=== PATIENT | female | born 1945 | race Asian ===

== ENCOUNTER → 2018-07-14 | Outpatient (CLI) | payer MEDICARE, OTHER ==
--- NOTE | 2018-07-14 09:57 | RAD ---
Indication:ABD BLOATING AND DISCOMFORT TECHNIQUE: Grayscale, color Doppler and spectral waveform is of the limited abdomen obtained. COMPARISON:None FINDINGS:Visualized pancreas is within normal limits. No gallstones, pericholecystic fluid or gallbladder wall thickening. IVC is patent. Main portal vein is patent. Liver measures 13 cm in longest dimension and is normal in size with diffuse increased echogenicity. No apparent focal liver lesion. Right kidney measures 11.3 cm in length without hydronephrosis. CBD measures 3 mm in diameter and is within normal limits. IMPRESSION: 1. No cholelithiasis or sonographic evidence of acute cholecystitis. 2. Mild hepatic steatosis. Electronically signed by: Troy Lindsey DO (07/14/2018 9:54 AM) [id number]
== END | disposition home or self-care (01) ==
LOC: US 08:58
PROVIDERS: ATTEND Internal Medicine Gastroenterology
DX: K76.0 Fatty (change of) liver, not elsewhere classified (principal)
CPT/HCPCS: 76705

== ENCOUNTER → 2018-09-06 | Day surgery (SDC) | payer MEDICARE, OTHER ==
[~2018-09-06] MED LIST: ALBUTEROL SULFATE 2.5 MG/3 ML NEBU. NEB PRN; CALC-157 PO; CHOL100013 PO; IPRATRPIUM/ALBUTEROL 0.5/2.5MG 3 ML NEBU. NEB PRN; IV RINGERS SOLUTION,LACTATED 1,000 ML IV SCH; LORA10TA68 PO; MAGN200T PO; METOPROLOL TARTRATE 5 MG/5 ML VIAL. IV PRN; ONDANSETRON PF 4 MG/2 ML VIAL. IV PRN; PROPOFOL 20 ML IV ONE; SIMV10TA3 PO; UBID30CA9 PO
[2018-09-06 10:13] VITALS: BP 101/51
== END | disposition home or self-care (01) ==
LOC: SURG 07:26
PROVIDERS: ATTEND Internal Medicine Gastroenterology
DX: D12.2 Benign neoplasm of ascending colon (principal); K64.8 Other hemorrhoids; Z79.899 Other long term (current) drug therapy; K21.9 Gastro-esophageal reflux disease without esophagitis; Z98.890 Other specified postprocedural states; Z98.51 Tubal ligation status; Z85.828 Personal history of other malignant neoplasm of skin; Z86.010 Personal history of colon polyps; Z81.1 Family history of alcohol abuse and dependence
CPT/HCPCS: 45385; J2704; J7120; 45380

== ENCOUNTER → 2018-10-11 | Day surgery (SDC) | payer MEDICARE, OTHER ==
[~2018-10-11] MED LIST changes: +ATROPINE 0.5 MG/5 ML DISP.SYRIN. IV PRN; -IPRATRPIUM/ALBUTEROL 0.5/2.5MG 3 ML NEBU. NEB PRN; +LIDOCAINE 2% PF Vial for OR 5 ML VIAL. ONE; -METOPROLOL TARTRATE 5 MG/5 ML VIAL. IV PRN; +NALOXONE 0.4 MG/ML VIAL. IV PRN; +diphenhydrAMINE 50 MG/ML VIAL IV PRN
[2018-10-11 09:30] VITALS: BP 133/76
== END | disposition home or self-care (01) ==
LOC: SURG 07:30
PROVIDERS: ATTEND Internal Medicine Gastroenterology
DX: K21.9 Gastro-esophageal reflux disease without esophagitis (principal); R14.0 Abdominal distension (gaseous); R10.10 Upper abdominal pain, unspecified; Z79.899 Other long term (current) drug therapy; Z98.51 Tubal ligation status; Z98.890 Other specified postprocedural states; Z86.010 Personal history of colon polyps; Z85.828 Personal history of other malignant neoplasm of skin
CPT/HCPCS: 43239; J2704; J7120; J2001

== ENCOUNTER → 2018-12-07 | Outpatient (CLI) | payer MEDICARE, OTHER ==
[2018-10-11 09:30] VITALS: BP 133/76
[~2018-12-07] MED LIST changes: -ALBUTEROL SULFATE 2.5 MG/3 ML NEBU. NEB PRN; -ATROPINE 0.5 MG/5 ML DISP.SYRIN. IV PRN; -IV RINGERS SOLUTION,LACTATED 1,000 ML IV SCH; -LIDOCAINE 2% PF Vial for OR 5 ML VIAL. ONE; -NALOXONE 0.4 MG/ML VIAL. IV PRN; -ONDANSETRON PF 4 MG/2 ML VIAL. IV PRN; -PROPOFOL 20 ML IV ONE; -diphenhydrAMINE 50 MG/ML VIAL IV PRN
--- NOTE | 2018-12-07 15:01 | RAD ---
Gastric Emptying Study 12/07/2018 Indication: Upper abnormal pain Procedure: Anterior and posterior projection static images are obtained over the stomach following oral administration of 2 mCi of 99 M technetium sulfur colloid in a solid meal (egg and toast). Time points include an immediate baseline, and 1, 2, 3, and 4 hours post ingestion. Findings: There is progressive emptying of the stomach on sequential images. Percentage retention at... One hour is 51% (normal 34.8-91%). Two hours 19% (normal 2.7-60%). Three hours 1% (normal 0.5-28%). Four hours 1% (normal 0-10%). Impression: Normal 4 hour protocol gastric emptying study. Consensus Recommendations for Gastric Emptying Scintigraphy: A Joint Report of the [place] [employer] and the Society of Nuclear Medicine: J. Nucl. Med. Technol. October 2007 vol. 36 no. 1 44-54 Grading for severity of delayed GE based on the 4-h value: grade 1 (mild): 11?20% retention at 4 h grade 2 (moderate): 21?35% retention at 4 h grade 3 (severe): 36?50% retention at 4 h grade 4 (very severe): >50% retention at 4 h. Electronically signed by: Vamshi Pollard MD (12/07/2018 2:58 PM) [id number]
== END | disposition home or self-care (01) ==
LOC: NM 08:42
PROVIDERS: ATTEND Internal Medicine Gastroenterology
DX: R10.10 Upper abdominal pain, unspecified (principal)
CPT/HCPCS: 78264; A9541